=== PATIENT | female | born 1985 | race Hispanic/Latino ===

== ENCOUNTER 2016-03-05 19:30 | Emergency (ER) | payer OTHER ==
[~2016-03-05] VITALS: Ht 162.6 cm; Wt 74.8 kg
[~2016-03-05 19:30] MED LIST: AUGMENTIN 875 M1 TAB PO; BENZONATATE200 MG PO; BLM PO
[2016-03-05 19:35] VITALS: BP 120/83
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
[2016-03-05] MEDS ORDERED: CYCLOBENZAPRINE10 M1 PO (20:08)
[2016-03-05] MEDS ORDERED: KETOROLAC TROME10 M1 PO (20:08)
== END 2016-03-05 20:29 ==
LOC: ERH 19:30
DX: S39.012A Strain of muscle, fascia and tendon of lower back, initial encounter (principal); V49.40XA Driver injured in collision with unspecified motor vehicles in traffic accident, initial encounter
CPT/HCPCS: 96372; J1885

== ENCOUNTER 2017-03-06 14:37 | Emergency (ER) | payer OTHER ==
[~2017-03-06] VITALS: Ht 162.6 cm; Wt 72.1 kg
[~2017-03-06 14:37] MED LIST changes: +CYCLOBENZAPRINE10 M1 PO; +KETOROLAC TROME10 M1 PO
--- NOTE | 2017-03-06 15:19 | RADIOLOGY REPORT ---
EXAMINATION: XR CHEST CLINICAL INFORMATION: Chest pain. Presumptive diagnosis of pneumonia, CHF. COMPARISON: There are no prior studies for comparison. TECHNIQUE: Frontal and lateral views of the chest were obtained. FINDINGS: The lungs are clear bilaterally. There is no evidence of pleural effusion or pneumothorax. The central pulmonary vasculature is within normal limits. The cardiomediastinal silhouette is not enlarged. The bony structures and overlying soft tissues are unremarkable. IMPRESSION: No acute cardiopulmonary findings.
[2017-03-06 16:03] LABS: ABSOLUTE BASOPHIL COUNT 0 /CUMM (0.0-0.2); ABSOLUTE EOSINOPHIL COUNT 0.1 /CUMM (0.0-0.7); ABSOLUTE GRANULOCYTE CT 4.8 /CUMM (1.4-6.5); ABSOLUTE LYMPH COUNT 1.6 /CUMM (1.2-3.4); ABSOLUTE MONOCYTE COUNT 0.4 /CUMM (0.10-0.60); BASOPHIL % 0.4 % (0.0-2.0); EOSINOPHIL % 1.7 % (0-5); HEMATOCRIT 35.7 % (37-47); MEAN CORPUSCULAR HGB 31.9 PG (27.0-31.0); MEAN CORPUSCULAR HGB CONC 34.1 G/DL (33.0-37.0); MEAN CORPUSCULAR VOLUME 93.4 FL (81.0-99.0); MEAN PLATELET VOLUME 8.4 FL (7.4-10.4); PLATELET COUNT 269 /CUMM (130-400); RBC DISTRIBUTION WIDTH 12.7 % (11.5-14.5); RED BLOOD CELL CT 3.82 /CUMM (4.20-5.40)
--- NOTE | 2017-03-06 18:27 | ED CARDIAC/CP/PALPITATIONS ---
See Addendum History of Present Illness General Chief Complaint: Chest Pain Stated Complaint: CP,SOB Source: patient Exam Limitations: no limitations Allergies Coded Allergies: NO KNOWN ALLERGIES (03/05/16) Reconcile Medications Cyclobenzaprine HCl 10 MG TABLET 1 TAB PO QPM PRN MUSCLE RELAXOR Ketorolac Tromethamine 10 MG TABLET 1 TAB PO TID PRN PAIN Triage Note: PT C/O SHARP RIGHT SIDED CP SINCE THIS MORNING. STATES LAST NIGHT SHE STARTED WITH SOB AND IT CONTINUES TODAY. STATES PAIN IS WORSE WITH DEEP INSPIRATION Triage Nurses Notes Reviewed? yes Onset: Abrupt Duration: day(s): (2), constant, continues in ED Timing: single episode today Quality/Severity: moderate, sharp Location: substernal Radiation: no radiation Activities at Onset: rest Prior Chest Pain/Card Workup: no prior chest pain, no prior cardiac workup Modifying Factors: Worsens With: movement, palpation. Nitro Today/Relief: no nitro taken today Aspirin Today: no aspirin today Associated Symptoms: shortness of breath LMP (ages 10-50): unknown : No Patient currently breastfeeds: No HPI: 31-year-old female past medical history of migraine headaches results for evaluation of chest pain shortness of breath. Patient states that symptoms first started last night with shortness of breath and progressed to chest pain when she woke up this morning. The pain is located in the center of her chest and does not radiate. Described as sharp. It is worse with touching the area and movement of her upper extremities. There is no trauma or triggering event. The pain is also worse with deep inspiration. No hemoptysis, lower extremity edema, recent surgery recent trauma. No palpitations dizziness or lightheadedness. She does not drink smoke or use any drugs. The patient is not worse on physical exertion. Nose negative family cardiac history. (Renato GORMAN,Kameron) Vital Signs & Intake/Output Vital Signs & Intake/Output Vital Signs Date Time Temp Pulse Resp B/P B/P Pulse O2 O2 Flow FiO2 Mean Ox Delivery Rate 03/06 1837 97.7 56 18 102/67 99 Room Air 03/06 1449 97.5 72 20 106/70 99 Room Air (Skylar GOLDEN,Keenan Velazquez) Past History Travel History Traveled to [place] past 21 day No Medical History Any Pertinent Medical History? see below for history Neurological: migraine Surgical History Surgical History: non-contributory Psychosocial History What is your primary language Sierra Leonean Tobacco Use: Never used ETOH Use: denies use Illicit Drug Use: denies illicit drug use Family History Hx Contributory? No (Kameron Rogel) Review of Systems Review of Systems Constitutional: Reports: no symptoms. EENTM: Reports: no symptoms. Respiratory: Reports: see HPI, short of breath. Cardiovascular: Reports: see HPI, chest pain. GI: Reports: no symptoms. Genitourinary: Reports: no symptoms. Musculoskeletal: Reports: no symptoms. Skin: Reports: no symptoms. Neurological/Psychological: Reports: no symptoms. Hematologic/Endocrine: Reports: no symptoms. Immunologic/Allergic: Reports: no symptoms. All Other Systems: Reviewed and Negative (Kameron Rogel) Physical Exam Physical Exam General Appearance: well developed/nourished, no apparent distress, alert, awake Head: atraumatic, normal appearance Eyes: Bilateral: normal appearance, PERRL, EOMI. Ears, Nose, Throat: normal pharynx, normal ENT inspection, hearing grossly normal Neck: normal inspection, supple, full range of motion Respiratory: normal breath sounds, no respiratory distress, lungs clear, CHEST WALL IS TENDER TO PALPATION OVER THE STERNUM. pAIN IS REPRODUCIBLE WITH RANGE OF MOTION OF THE UPPER EXTREMITIES Cardiovascular: regular rate/rhythm, normal peripheral pulses Peripheral Pulses: 2+ radial (R), 2+ radial (L) Gastrointestinal: normal bowel sounds, soft, non-tender, no organomegaly Back: normal inspection, normal range of motion, no vertebral tenderness Neurologic/Psych: no motor/sensory deficits, awake, alert, oriented x 3, normal gait, normal mood/affect Skin: intact, normal color, warm/dry Core Measures ACS in differential dx? No CVA/TIA Diagnosis No Sepsis Present: No Sepsis Focused Exam Completed? No (Kameron Rogel) Progress Differential Diagnosis: AMI, aortic dissection, atrial fibrillation, CHF/pulm edema, musculoskeletal pain, pneumonia, pneumothorax, PSVT, pulmonary embolism, PUD/GERD, PVCs/PACs, V-fib/V-Tach Diagnostic Imaging: Viewed by Me: Radiology Read. Discussed w/RAD: Radiology Read. Radiology Impression: PATIENT: JASWINDER THACKER PRESENT AGE: 31 PATIENT ACCOUNT NO: [id number] : 83 LOCATION: [facility] ORDERING PHYSICIAN: Kameron GORMAN SERVICE DATE: 03/06/17 EXAM TYPE: RAD - XRY- CHEST XRAY, TWO VIEWS EXAMINATION: XR CHEST CLINICAL INFORMATION: Chest pain. Presumptive diagnosis of pneumonia, CHF. COMPARISON: There are no prior studies for comparison. TECHNIQUE: Frontal and lateral views of the chest were obtained. FINDINGS: The lungs are clear bilaterally. There is no evidence of pleural effusion or pneumothorax. The central pulmonary vasculature is within normal limits. The cardiomediastinal silhouette is not enlarged. The bony structures and overlying soft tissues are unremarkable. IMPRESSION: No acute cardiopulmonary findings. DICTATED BY: Kimber Jimenez MD DATE/TIME DICTATED: 03/06/171514 TRAIN CONDUCTOR:AVERY DATE/TIME TRANSCRIBED:03/06/171514 Initial ED EKG: normal sinus rhythm, BORDERLINE T WAVE ABN INFERIOR LEADS Repeat EKG: unchanged (Renato GORMAN,Kameron) Plan of Care: Orders Procedure Date/time Status TROPONIN LEVEL 03/06 193 Complete D-DIMER 03/06 193 Complete EKG 03/06 1934 Active Add-on Test (ER Only) 03/06 1906 Active Add-on Test (ER Only) 03/06 1827 Active TSH REFLEX 03/06 1527 Complete MAGNESIUM 03/06 1527 Complete URINE 03/06 1448 Complete URINALYSIS 03/06 1448 Complete TROPONIN LEVEL 03/06 1448 Complete COMPREHENSIVE METABOLIC PANEL 03/06 1448 Complete CBC WITHOUT DIFFERENTIAL 03/06 1448 Complete EKG 03/06 1439 Active Laboratory Tests 03/06/17 2000: Troponin I < 0.01, D-Dimer High Sensitivty < 200 03/06/17 1855: Urinalysis MOD H, Urine Color YEL, Urine Clarity HAZY H, Urine pH 6.5, Ur Specific Rebecca 1.025, Urine Protein NEG, Urine Ketones NEG, Urine Nitrite NEG, Urine Bilirubin NEG, Urine Urobilinogen 0.2, Ur Leukocyte Esterase MOD H, Ur Microscopic SEDIMENT EXAMINED, Urine RBC 5-10 H, Urine WBC 10-15 H, Ur Epithelial Cells MOD H, Urine Bacteria MANY H, Urine Hemoglobin MOD H, Urine Glucose NEG, Urine Test NEGATIVE 03/06/17 1527: Anion Gap 12, Estimated GFR > 60, BUN/Creatinine Ratio 23.3, Glucose 99, Calcium 9.2, Magnesium 1.8, Total Bilirubin 1.0, AST 22, ALT 42, Alkaline Phosphatase 56 , Troponin I < 0.01, Total Protein 7.1, Albumin 3.9, Globulin 3.2, Albumin/ Globulin Ratio 1.2, TSH &T3 &Free T4 Intrp 1.460, CBC w Diff NO MAN DIFF REQ, RBC 3.82 L, MCV 93.4, MCH 31.9 H, RDW 12.7, MPV 8.4, Gran % 68.0, Lymphocytes % 23.6, Monocytes % 6.3, Eosinophils % 1.7, Basophils % 0.4, Absolute Granulocytes 4.8, Absolute Lymphocytes 1.6, Absolute Monocytes 0.4, Absolute Eosinophils 0.1, Absolute Basophils 0, PUBS MCHC 34.1 PT seen and evaluated. She's been having chest pain since this morning when she first woke up. The pain has improved since it first started after she received ibuprofen here. Her blood work is unremarkable. Chest x-ray is clear. Repeat EKG and troponin are negative and unchanged. Patient did have a run of what the computer mold repairer read as V. tach. This was reviewed by me Dr. Cheng and Dr. Zavaleta and determined to be artifact. Patient is feeling better. He was monitored for 7 hours here in the emergency department. She was asymptomatic during this event. Patient be instructed to rest and plenty of fluids Tylenol or Profen for pain. Make a follow-up with primary care doctor. Also be referred to cardiology. Discussed return precautions in detail patient is nontoxic-appearing and agrees with the plan. (Renato GORMAN,Kameron) Comments: 03/06/2017 8:15:58 PM I evaluated Jaswinder at the request of the PA due to a possible run of ventricular tachycardia. Patient is currently feeling better but her chest pain persists. She is otherwise alert and conversant and comfortable appearing. It is unclear if the episode seen on the heart monitor was ventricular tachycardia or an artifact. Given the patient's chest pain upon presentation I've asked the PA to obtain a copy of the episode and speak with the on-call piping blocker. (Skylar GOLDEN,Keenan Velazquez) Departure Departure Disposition: HOME OR SELF CARE Condition: Stable Clinical Impression Primary Impression: Chest pain Qualifiers: Chest pain type: unspecified Qualified Code: R07.9 - Chest pain, unspecified Referrals: Meghann GOLDEN,Alexandro Bolaños MD,Sunil Moran (PCP/Family) Additional Instructions: Rest and drink plenty of fluids. Tylenol ibuprofen as needed for pain. Make a follow-up with your primary care doctor and provided piping blocker Dr. Zavaleta as soon as possible. Monitor symptoms return with any concerns. Departure Forms: Customer Survey General Discharge Information Prescriptions: Current Visit Scripts Ibuprofen 1 TAB PO TID PRN PAIN #30 TAB (Kameron Rogel) PA/WORKERS' COMPENSATION MEDIATOR Co-Sign Statement Statement: ED Attending supervision documentation- [x] I saw and evaluated the patient. I have also reviewed all the pertinent lab results and diagnostic results. I agree with the findings and the plan of care as documented in the PA's/WORKERS' COMPENSATION MEDIATOR's documentation. [] I have reviewed the ED Record and agree with the PA's/WORKERS' COMPENSATION MEDIATOR's documentation. [] Additions or exceptions (if any) to the PAs/WORKERS' COMPENSATION MEDIATOR's note and plan are summarized below: [] (Skylar GOLDEN,Keenan Velazquez) Critical Care Note Critical Care Note Critical Care Time: non-applicable (Kameron Rogel)
[2017-03-06] MEDS ORDERED: IBUPROFEN800 M1 PO (22:05)
[2017-03-06 22:11] VITALS: BP 94/52
== END 2017-03-06 22:17 ==
LOC: ERH 14:37
PROVIDERS: Physician Assistant Medical
DX: R07.89 Other chest pain (principal)
CPT/HCPCS: 71046; 81001; 81025; 93005; 93010

== ENCOUNTER 2017-06-14 20:13 | Emergency (ER) | payer OTHER ==
[~2017-06-14] VITALS: Ht 167.6 cm; Wt 79.8 kg
[~2017-06-14 20:13] MED LIST changes: +AMOXICILLIN500 M3 PO; +IBUPROFEN800 M1 PO; +ROBITUSSIN COU237 M1 PO
--- NOTE | 2017-06-14 21:19 | ED GI/GU/ABDOMINAL COMPLAINT ---
History of Present Illness General Chief Complaint: Abdominal Pain/Flank Pain Stated Complaint: ABD PAIN X 2 DAYS Source: patient Exam Limitations: no limitations Vital Signs & Intake/Output Vital Signs & Intake/Output Vital Signs Date Time Temp Pulse Resp B/P B/P Pulse O2 O2 Flow FiO2 Mean Ox Delivery Rate 06/14 2359 97.8 90 16 112/60 99 Room Air 06/14 2036 97.3 70 18 106/70 97 ED Intake and Output 06/15 0000 06/14 1200 Intake Total Output Total Balance Patient 176 lb Weight Allergies Coded Allergies: NO KNOWN ALLERGIES (03/05/16) Triage Note: PT TO ED WITH C/O MID ABD PAIN X 2 DAYS ASSOCIATED WITH NAUSEA. DENIES CHANGES IN BOWEL OR BLADDER Triage Nurses Notes Reviewed? yes ? N Is pt currently ? No Onset: Gradual Duration: getting worse Timing: recent history Severity Numbers: 7 Radiation: no radiation HPI: Patient is a 31-year-old female who presents to emergency room with concerns of a 2 day history of abdominal pain where she states this pain initially began to the epigastric region and periumbilical region however is now migrated to right lower quadrant. Patient has had intermittent episodes of nausea without emesis however patient did eat [place] food prior to arrival. Patient denies any chest pain back pain dysuria hematuria vaginal bleeding or discharge. Last bowel movement was in the last 24 hours no blood no melena noted. (Alycia GORMAN,Kimani) Reconcile Medications Amoxicillin 500 MG TABLET 1 TAB PO TID sinusitis Cyclobenzaprine HCl 10 MG TABLET 1 TAB PO QPM PRN MUSCLE RELAXOR Dicyclomine HCl 10 MG CAPSULE 1 CAP PO TID ENTERITIS Guaifenesin/Dextromethorphan (Robitussin Cough-Chest Dm Liq) 100 MG-5 MG/5 ML LIQUID 5-10 ML PO Q6P PRN cough Ibuprofen 800 MG TABLET 1 TAB PO TID PRN PAIN Ketorolac Tromethamine 10 MG TABLET 1 TAB PO TID PRN PAIN Ketorolac Tromethamine 10 MG TABLET 1 TAB PO TID PRN PAIN Ondansetron HCl (Zofran) 4 MG TABLET 1 TAB PO Q6-8P PRN NAUSEA (Femi GOLDEN,Joel) Past History Travel History Traveled to [place] past 21 day No Medical History Any Pertinent Medical History? see below for history Neurological: migraine Psychiatric: anxiety Surgical History Surgical History: non-contributory Psychosocial History What is your primary language Arabic Tobacco Use: Never used Family History Hx Contributory? No (Kimani Morgan) Review of Systems Review of Systems Constitutional: Reports: no symptoms. EENTM: Reports: no symptoms. Respiratory: Reports: no symptoms. Cardiovascular: Reports: no symptoms. GI: Reports: see HPI. Genitourinary: Reports: no symptoms. Musculoskeletal: Reports: no symptoms. Skin: Reports: no symptoms. Neurological/Psychological: Reports: no symptoms. Hematologic/Endocrine: Reports: no symptoms. Immunologic/Allergic: Reports: no symptoms. All Other Systems: Reviewed and Negative (Kimani Morgan) Physical Exam Physical Exam General Appearance: no apparent distress, alert, comfortable Head: atraumatic Eyes: Bilateral: normal appearance. Ears, Nose, Throat, Mouth: hearing grossly normal Neck: normal inspection Respiratory: normal breath sounds, chest non-tender Gastrointestinal: normal bowel sounds, soft, RLQ PAIN NO RUQ PAIN NO REBOUND Extremities: normal range of motion Neurologic/Psych: no motor/sensory deficits, awake Skin: intact, normal color Core Measures ACS in differential dx? No Sepsis Present: No Sepsis Focused Exam Completed? No (Kimani Morgan) Progress Differential Diagnosis: AAA, AMI, appendicitis, biliary colic, bowel obstruction , colon cancer, cholecystitis, diverticulitis, ectopic , endometritis, esophageal varices, gastritis, hepatitis, hernia, hemorrhoids, ischemic bowel, inflamm bowel dis, intrauterine , kidney stone, ovarian cyst, ovarian torsion, pancreatitis, PID/cervicitis, peptic ulcer, PUD/GERD, perforated viscous, SBO, threatened AB, UTI/pyelo Plan of Care: Orders Procedure Date/time Status LIPASE 06/14 2209 Complete COMPREHENSIVE METABOLIC PANEL 06/14 2209 Complete CBC WITHOUT DIFFERENTIAL 06/14 2209 Complete URINE 06/14 2032 Complete URINALYSIS 06/14 2032 Complete Laboratory Tests 06/14/172225: Anion Gap 9, Estimated GFR > 60, BUN/Creatinine Ratio 20.0, Glucose 104 H, Calcium 8.7, Total Bilirubin 0.7, AST 15, ALT 18, Alkaline Phosphatase 68, Total Protein 6.5, Albumin 3.5, Globulin 3.0, Albumin/Globulin Ratio 1.2, Lipase 59, CBC w Diff NO MAN DIFF REQ, RBC 3.49 L, MCV 92.7, MCH 31.3 H, MCHC 33.8, RDW 13.0, MPV 7.7, Gran % 65.8, Lymphocytes % 23.1, Monocytes % 8.9, Eosinophils % 1.7, Basophils % 0.5, Absolute Granulocytes 4.5, Absolute Lymphocytes 1.6, Absolute Monocytes 0.6, Absolute Eosinophils 0.1, Absolute Basophils 0 06/14/172049: Urinalysis MOD H, Urine Color YEL, Urine Clarity CLEAR, Urine pH 6.5, Ur Specific [place] 1.025, Urine Protein NEG, Urine Ketones NEG, Urine Nitrite NEG, Urine Bilirubin NEG, Urine Urobilinogen 0.2, Ur Leukocyte Esterase NEG, Ur Microscopic SEDIMENT EXAMINED, Urine RBC 3-5, Urine WBC 3-5 H, Ur Epithelial Cells FEW, Urine Bacteria RARE H, Urine Hemoglobin MOD H, Urine Glucose NEG, Urine Test NEGATIVE Patient had improvement of pain and nausea with Toradol and Zofran. Patient was able tolerate by mouth prior to discharge. I reviewed all blood work and CT scans with patient patient was strongly advised to follow-up with discharge instructions and plan. Upon discharge patient looks well no apparent distress and will comply with discharge instructions Diagnostic Imaging: Viewed by Me: CT Scan. Radiology Impression: SEE COMMENTS Initial ED EKG: none Comments: PATIENT: JASWINDER THACKER PRESENT AGE: 31 PATIENT ACCOUNT NO: [id number] : 83 LOCATION: [facility] ORDERING PHYSICIAN: Kimani GORMAN SERVICE DATE: 06/14/17 EXAM TYPE: CAT - CT ABD & PELVIS W IV CONTRAST EXAMINATION: CT ABDOMEN AND PELVIS WITH CONTRAST CLINICAL INFORMATION: Right lower quadrant pain COMPARISON: None TECHNIQUE: Multidetector volumetric imaging was performed of the abdomen and pelvis following IV administration of 95 mL of Optiray 320 intravenous contrast. Sagittal and coronal reformatted images were obtained on the technologist's workstation. DLP: 326 mGy-cm FINDINGS: LUNG BASES: The visualized lung bases are unremarkable. LIVER, GALLBLADDER, AND BILIARY TREE: The liver is normal in size, shape, and attenuation. No focal hepatic lesion or biliary ductal dilatation is present. The gallbladder is contracted with no evidence of radiopaque gallstones, gallbladder wall thickening, or obvious pericholecystic inflammatory changes. PANCREAS: Unremarkable. SPLEEN: Unremarkable. ADRENAL GLANDS: Unremarkable. KIDNEYS AND URETERS: The kidneys are normal in size, shape, and attenuation. No hydronephrosis, hydroureter, or calculi seen. No perinephric stranding. BLADDER: Unremarkable. GASTROINTESTINAL TRACT: The stomach is unremarkable. The small bowel is normal in caliber. No obstruction. Fecalization in the distal ileum suggests slow transit. Mild wall thickening at the distal ileum is noted. No colonic wall thickening or inflammatory change. Normal appendix. No free air or free fluid. ABDOMINAL WALL: No significant hernia is appreciated. LYMPH NODES: Normal. VASCULAR: Unremarkable. PELVIC VISCERA: The uterus and adnexa are unremarkable. OSSEOUS STRUCTURES: No acute or suspicious osseous abnormality. IMPRESSION: Mild wall thickening of the distal ileum extending to the terminal ileum suggestive of enteritis. Normal appendix. DICTATED BY: Dharmesh Akins MD DATE/TIME DICTATED:06/14/172333 GUT CARRIER:AVERY DATE/TIME TRANSCRIBED:06/14/172333 (Kimani Morgan) Departure Departure Disposition: HOME OR SELF CARE Condition: Stable Clinical Impression Primary Impression: Abdominal pain Secondary Impressions: Enteritis Referrals: Miky GOLDEN,Sunil Moran (PCP/Family) Hipolito Cantrell MD Additional Instructions: As discussed begin a 48 hour regimen of clear liquids and bland diet and clear liquids, begin the prescription of Bentyl for your symptoms Zofran for nausea and Toradol for pain. Prescription awaiting a [facility]. If no better on Sunday follow up with store worker Dr. Cantrell. If symptoms worsen return to emergency room. Departure Forms: Customer Survey General Discharge Information Prescriptions: Current Visit Scripts Dicyclomine HCl 1 CAP PO TID #9 CAP Ondansetron HCl (Zofran) 1 TAB PO Q6-8P PRN NAUSEA #8 TAB Ketorolac Tromethamine 1 TAB PO TID PRN PAIN #9 TAB (Kimani Morgan) PA/COAGULATION OPERATOR Co-Sign Statement Statement: ED Attending supervision documentation- I saw and evaluated the patient. I have also reviewed all the pertinent lab results and diagnostic results. I agree with the findings and the plan of care as documented in the PA's/COAGULATION OPERATOR's documentation. x I have reviewed the ED Record and agree with the PA's/COAGULATION OPERATOR's documentation. [] Additions or exceptions (if any) to the PAs/COAGULATION OPERATOR's note and plan are summarized below: [] (Femi GOLDEN,Joel)
[2017-06-14 22:37] LABS: ABSOLUTE BASOPHIL COUNT 0 /CUMM (0.0-0.2); ABSOLUTE EOSINOPHIL COUNT 0.1 /CUMM (0.0-0.7); ABSOLUTE GRANULOCYTE CT 4.5 /CUMM (1.4-6.5); ABSOLUTE LYMPH COUNT 1.6 /CUMM (1.2-3.4); ABSOLUTE MONOCYTE COUNT 0.6 /CUMM (0.10-0.60); BASOPHIL % 0.5 % (0.0-2.0); EOSINOPHIL % 1.7 % (0-5); GRANULOCYTE % 65.8 % (42.2-75.2); HEMATOCRIT 32.4 % (37-47); MEAN CORPUSCULAR HGB 31.3 PG (27.0-31.0); MEAN CORPUSCULAR HGB CONC 33.8 G/DL (33.0-37.0); MEAN CORPUSCULAR VOLUME 92.7 FL (81.0-99.0); MEAN PLATELET VOLUME 7.7 FL (7.4-10.4); RED BLOOD CELL CT 3.49 /CUMM (4.20-5.40)
[2017-06-14 22:59] LABS: PLATELET COUNT 274 /CUMM (130-400); WHITE BLOOD CELL COUNT 6.8 /CUMM (4.8-10.8)
--- NOTE | 2017-06-14 23:44 | CT SCAN REPORT ---
EXAMINATION: CT ABDOMEN AND PELVIS WITH CONTRAST CLINICAL INFORMATION: Right lower quadrant pain COMPARISON: None TECHNIQUE: Multidetector volumetric imaging was performed of the abdomen and pelvis following IV administration of 95 mL of Optiray 320 intravenous contrast. Sagittal and coronal reformatted images were obtained on the technologist's workstation. DLP: 326 mGy-cm FINDINGS: LUNG BASES: The visualized lung bases are unremarkable. LIVER, GALLBLADDER, AND BILIARY TREE: The liver is normal in size, shape, and attenuation. No focal hepatic lesion or biliary ductal dilatation is present. The gallbladder is contracted with no evidence of radiopaque gallstones, gallbladder wall thickening, or obvious pericholecystic inflammatory changes. PANCREAS: Unremarkable. SPLEEN: Unremarkable. ADRENAL GLANDS: Unremarkable. KIDNEYS AND URETERS: The kidneys are normal in size, shape, and attenuation. No hydronephrosis, hydroureter, or calculi seen. No perinephric stranding. BLADDER: Unremarkable. GASTROINTESTINAL TRACT: The stomach is unremarkable. The small bowel is normal in caliber. No obstruction. Fecalization in the distal ileum suggests slow transit. Mild wall thickening at the distal ileum is noted. No colonic wall thickening or inflammatory change. Normal appendix. No free air or free fluid. ABDOMINAL WALL: No significant hernia is appreciated. LYMPH NODES: Normal. VASCULAR: Unremarkable. PELVIC VISCERA: The uterus and adnexa are unremarkable. OSSEOUS STRUCTURES: No acute or suspicious osseous abnormality. IMPRESSION: Mild wall thickening of the distal ileum extending to the terminal ileum suggestive of enteritis. Normal appendix.
[2017-06-14] MEDS ORDERED: DICYCLOMINE HCL10 M1 PO (23:51)
[2017-06-14] MEDS ORDERED: ZOFRAN4 M2 PO (23:51)
[2017-06-14] MEDS ORDERED: KETOROLAC TROME10 M1 PO (23:51)
[2017-06-14 23:59] VITALS: BP 112/60
== END 2017-06-15 ==
LOC: ERH 20:13
PROVIDERS: Physician Assistant
DX: K52.9 Noninfective gastroenteritis and colitis, unspecified (principal)
CPT/HCPCS: 74177; 81001; 81025; 96374; 96375; J1885; J2405